=== PATIENT | female | born 1985 | race Caucasian/White ===

== ENCOUNTER 2021-05-19 20:52 | Emergency (ER) | payer BC ==
[2021-05-19] MEDS ORDERED: Ventolin HFA Inhaler 60 PUFF INHALER ONE (23:30)
== END 2021-05-20 02:30 | disposition home or self-care (01) ==
LOC: CSHERS 20:52
DX: U07.1 COVID-19 (principal)
CPT/HCPCS: 71045; 93005; 93010; 94664; 94760